=== PATIENT | female | born 1955 | race African-American/Black ===

== ENCOUNTER 2016-08-04 10:49 | Emergency (ER) | payer BC, OTHER ==
[2016-08-04] MEDS ORDERED: ONDANSETRON 4 MG VIAL ONE (14:24)
[2016-08-04] MEDS ORDERED: KETOROLAC 30 MG/ML VIAL ONE (14:25)
[2016-08-04] MEDS ORDERED: SODIUM CHLORIDE 0.9% 1,000 ML ONE (14:25)
[2016-08-04] MEDS ORDERED: CEFTRIAXONE 1 GM VIAL ONE (15:36)
[2016-08-04] MEDS ORDERED: SODIUM CHLORIDE 0.9% 100 ML IV ONE (15:36)
== END 2016-08-04 17:39 | disposition home or self-care (01) ==
LOC: ER 10:49
DX: N10 Acute pyelonephritis (principal); N39.0 Urinary tract infection, site not specified; R31.9 Hematuria, unspecified; Z79.84 Long term (current) use of oral hypoglycemic drugs; Z79.899 Other long term (current) drug therapy; Z79.4 Long term (current) use of insulin
CPT/HCPCS: 36415; 74176; 80053; 81001; 83690; 85025; 87077; 87088; 87186; 87491; 87591; 87800; 96361; 96365; 96375

== ENCOUNTER 2016-08-07 16:52 | Emergency (ER) | payer BC, OTHER ==
[2016-08-07] MEDS ORDERED: HYOSCYAMINE 0.5 MG/ML AMP 1 ML ONE (18:27)
[2016-08-07] MEDS ORDERED: SODIUM CHLORIDE 0.9% 1,000 ML ONE (18:27)
== END 2016-08-07 19:28 | disposition home or self-care (01) ==
LOC: ER 16:52
DX: K59.00 Constipation, unspecified (principal); R10.9 Unspecified abdominal pain; I11.0 Hypertensive heart disease with heart failure; E11.9 Type 2 diabetes mellitus without complications; Z79.84 Long term (current) use of oral hypoglycemic drugs; Z79.899 Other long term (current) drug therapy
CPT/HCPCS: 36415; 74020; 80053; 81001; 83690; 85025; 87088; 96361; 96374